=== PATIENT | male | born 1945 | race Two or more races ===

== ENCOUNTER → 2023-07-21 12:47 | Outpatient (REF) | payer OTHER, SELFPAY ==
[2023-07-21 15:46] LABS: INR 1.87; PT 21.3 Sec (11.4-14.6)
== END ==
LOC: HWLAB 12:47
PROVIDERS: ATTENDING PHYSICIAN Internal Medicine Cardiovascular Disease; FAMILY PHYSICIAN Family Medicine
DX: I48.21 Permanent atrial fibrillation (principal)
CPT/HCPCS: 36415; 85610

== ENCOUNTER → 2023-08-01 13:50 | Outpatient (REF) | payer OTHER, SELFPAY ==
[2023-08-01 15:12] LABS: INR 2.13; PT 23.7 Sec (11.4-14.6)
== END ==
LOC: HWLAB 13:50
PROVIDERS: ATTENDING PHYSICIAN Internal Medicine Cardiovascular Disease; FAMILY PHYSICIAN Family Medicine
DX: I48.21 Permanent atrial fibrillation (principal)
CPT/HCPCS: 36415; 85610

== ENCOUNTER → 2023-08-12 13:38 | Outpatient (REF) | payer OTHER, SELFPAY ==
[2023-08-12 16:16] LABS: INR 2.59; PT 27.6 Sec (11.4-14.6)
== END ==
LOC: HWLAB 13:38
PROVIDERS: ATTENDING PHYSICIAN Internal Medicine Cardiovascular Disease
DX: I48.21 Permanent atrial fibrillation (principal)
CPT/HCPCS: 36415; 85610

== ENCOUNTER → 2023-09-15 11:43 | Outpatient (REF) | payer OTHER, SELFPAY ==
[2023-09-15 16:13] LABS: INR 2.51
== END ==
LOC: HWLAB 11:43
PROVIDERS: ATTENDING PHYSICIAN Internal Medicine Cardiovascular Disease; FAMILY PHYSICIAN Family Medicine
DX: I48.21 Permanent atrial fibrillation (principal)
CPT/HCPCS: 36415; 85610

== ENCOUNTER → 2023-10-01 12:10 | Outpatient (REF) | payer OTHER, SELFPAY ==
[2023-10-01 16:13] LABS: INR 1.88; PT 21.8 Sec (11.4-14.6)
== END ==
LOC: HWLAB 12:10
PROVIDERS: ATTENDING PHYSICIAN Internal Medicine Cardiovascular Disease; FAMILY PHYSICIAN Family Medicine
DX: I48.21 Permanent atrial fibrillation (principal)
CPT/HCPCS: 36415; 85610

== ENCOUNTER → 2023-10-07 08:57 | Outpatient (REF) | payer OTHER, SELFPAY ==
[2023-10-07 11:32] LABS: INR 2.65; PT 28.1 Sec (11.4-14.6)
== END ==
LOC: HWLAB 08:57
PROVIDERS: ATTENDING PHYSICIAN Internal Medicine Cardiovascular Disease; FAMILY PHYSICIAN Family Medicine
DX: I48.21 Permanent atrial fibrillation (principal)
CPT/HCPCS: 36415; 85610

== ENCOUNTER → 2023-10-15 12:34 | Outpatient (REF) | payer OTHER, SELFPAY ==
[2023-10-15 14:56] LABS: INR 3.92; PT 39.1 Sec (11.4-14.6)
== END ==
LOC: HWLAB 12:34
PROVIDERS: ATTENDING PHYSICIAN Internal Medicine Cardiovascular Disease; FAMILY PHYSICIAN Family Medicine
DX: I48.21 Permanent atrial fibrillation (principal)
CPT/HCPCS: 36415; 85610

== ENCOUNTER → 2023-11-06 11:59 | Outpatient (REF) | payer OTHER, SELFPAY | LOC: HWLAB 11:59 | PROVIDERS: ATTENDING PHYSICIAN Internal Medicine Cardiovascular Disease; FAMILY PHYSICIAN Family Medicine | DX: I48.21 Permanent atrial fibrillation (principal) | CPT/HCPCS: 36415; 85610 ==

== ENCOUNTER → 2023-11-18 11:58 | Outpatient (REF) | payer OTHER, SELFPAY ==
[2023-11-18 15:40] LABS: INR 2.42; PT 26.2 Sec (11.4-14.6)
== END ==
LOC: HWLAB 11:58
PROVIDERS: ATTENDING PHYSICIAN Internal Medicine Cardiovascular Disease; FAMILY PHYSICIAN Family Medicine
DX: I48.21 Permanent atrial fibrillation (principal)
CPT/HCPCS: 36415; 85610

== ENCOUNTER → 2023-12-18 08:30 | Outpatient (REF) | payer OTHER, SELFPAY ==
[2023-12-18 10:14] LABS: % Basophils 0.9 % (0-2); % Eosinophils 2.3 % (0-6); % Immature Granulocytes 0.7 % (0-0.5); % Lymphocytes 17.9 % (20.5-51.1); % Neutrophils 70.2 % (42.2-75.2); Absolute Basophils 0.1 10^3/uL (0-0.2); Absolute Eosinophils 0.2 10^3/uL (0-0.7); Absolute Immature Granulocytes 0.1 10^3/uL (0-0.05); Absolute Lymphocytes 1.7 10^3/uL (1.2-3.4); Absolute Monocytes 0.7 10^3/uL (0.1-0.6); Absolute Neutrophils 6.5 10^3/uL (1.4-6.5); Hematocrit 37.8 % (39.0-52.0); Hemoglobin 12.7 g/dL (13.0-18.0); Mean Corp Hgb Conc. 33.6 g/dL (33.0-37.0); Mean Corpuscular Hgb 29.5 pg (27.0-31.0); Mean Corpuscular Volume 87.9 fL (80.0-94.0); Mean Platelet Volume 10.2 fL (7.4-10.4); Nucleated Red Blood Cells % 0 % (-); Platelet Count 214 10^3/uL (130-400); Red Cell Dist. Width 14.7 % (11.5-14.5); White Blood Cell Count 9.2 10^3/uL (4.8-10.8)
[2023-12-18 10:16] LABS: Urine Albumin Negative (Neg - Trace); Urine Bilirubin Negative (Negative); Urine Character Clear (Clear); Urine Color Straw; Urine Glucose Negative (Negative); Urine Ketone Negative (Negative); Urine Leukocyte Negative (Negative); Urine Nitrite Negative (Negative); Urine Occult Blood Negative (Negative); Urine Urobilinogen Negative (Neg - 1+)
[2023-12-18 10:36] LABS: INR 2.34; PT 25.9 Sec (11.4-14.6)
[2023-12-18 11:22] LABS: Glycohemoglobin (HgbA1c) 6.8 % (4.0-5.6)
[2023-12-18 12:13] LABS: ALT (SGPT) 14 U/L (0-50); AST (SGOT) 18 U/L (17-59); Albumin 4.5 g/dl (3.5-5.0); Alkaline Phosphatase 89 U/L (38-126); Blood Urea Nitrogen 42 mg/dl (9-20); Calcium 9.5 mg/dl (8.4-10.2); Carbon Dioxide 28 mmol/L (22-30); Chloride 103 mmol/L (98-107); Glucose 148 mg/dl (70-99); HDL Cholesterol 60 mg/dl; LDL Cholesterol, Calculated 76 mg/dl; Sodium 138 mmol/L (135-145); Total Bilirubin 0.4 mg/dl (0.2-1.3); Total Cholesterol 162 mg/dl (50-199); Total Protein 6.9 g/dl (6.3-8.2); Triglyceride 133 mg/dl (10-149); Very Low Density Lipoprotein 26 mg/dl (0-30); eGFR 33.53
[2023-12-18 15:16] LABS: Microalbumin, Random Urine < 0.6 mg/dl (0.6-1.7)
[2023-12-18 22:35] LABS: Microalb - Urine Creatinine < 3.000 mg/dl
== END ==
LOC: HWLAB 08:30
PROVIDERS: ATTENDING PHYSICIAN Internal Medicine Cardiovascular Disease; FAMILY PHYSICIAN Family Medicine
DX: I48.21 Permanent atrial fibrillation (principal); I25.10 Atherosclerotic heart disease of native coronary artery without angina pectoris; E11.8 Type 2 diabetes mellitus with unspecified complications
CPT/HCPCS: 36415; 80053; 80061; 81003; 82043; 82570; 83036; 85025; 85610

== ENCOUNTER → 2023-12-29 07:06 | Outpatient (REF) | payer OTHER, SELFPAY ==
[2023-12-29 10:34] LABS: Blood Urea Nitrogen 37 mg/dl (9-20); Calcium 8.9 mg/dl (8.4-10.2); Carbon Dioxide 30 mmol/L (22-30); Chloride 103 mmol/L (98-107); Glucose 136 mg/dl (70-99); Potassium 4.3 mmol/L (3.5-5.1); Sodium 138 mmol/L (135-145); eGFR 38.05
[2023-12-29 10:41] LABS: INR 2.27; PT 24.9 Sec (11.4-14.6)
== END ==
LOC: HWLAB 07:06
PROVIDERS: ATTENDING PHYSICIAN Internal Medicine Cardiovascular Disease; FAMILY PHYSICIAN Family Medicine
DX: I48.21 Permanent atrial fibrillation (principal); R79.89 Other specified abnormal findings of blood chemistry
CPT/HCPCS: 36415; 80048; 85610

== ENCOUNTER → 2024-01-12 13:22 | Outpatient (REF) | payer OTHER, SELFPAY ==
[2024-01-12 15:55] LABS: Blood Urea Nitrogen 32 mg/dl (9-20); Calcium 9.3 mg/dl (8.4-10.2); Carbon Dioxide 28 mmol/L (22-30); Chloride 102 mmol/L (98-107); Glucose 132 mg/dl (70-99); Potassium 4.7 mmol/L (3.5-5.1); Sodium 137 mmol/L (135-145); eGFR 40.75
[2024-01-12 16:14] LABS: INR 1.88; PT 21.4 Sec (11.4-14.6)
== END ==
LOC: HWLAB 13:22
PROVIDERS: ATTENDING PHYSICIAN Internal Medicine Cardiovascular Disease; FAMILY PHYSICIAN Family Medicine
DX: R79.89 Other specified abnormal findings of blood chemistry (principal); I48.21 Permanent atrial fibrillation
CPT/HCPCS: 36415; 80048; 85610

== ENCOUNTER → 2024-02-19 08:56 | Outpatient (REF) | payer OTHER, SELFPAY ==
[2024-02-19 12:46] LABS: INR 2.77; PT 29.7 Sec (11.4-14.6)
== END ==
LOC: HWLAB 08:56
PROVIDERS: ATTENDING PHYSICIAN Internal Medicine Cardiovascular Disease; FAMILY PHYSICIAN Family Medicine
DX: I48.21 Permanent atrial fibrillation (principal)
CPT/HCPCS: 36415; 85610

== ENCOUNTER → 2024-03-05 08:51 | Outpatient (REF) | payer OTHER, SELFPAY ==
[2024-03-05 13:00] LABS: INR 2.78; PT 29.2 Sec (11.4-14.6)
== END ==
LOC: HWLAB 08:51
PROVIDERS: ATTENDING PHYSICIAN Internal Medicine Cardiovascular Disease; FAMILY PHYSICIAN Family Medicine
DX: I48.21 Permanent atrial fibrillation (principal)
CPT/HCPCS: 36415; 85610

== ENCOUNTER → 2024-03-16 08:57 | Outpatient (REF) | payer OTHER, SELFPAY ==
[2024-03-16 11:20] LABS: INR 2.45; PT 26.5 Sec (11.4-14.6)
== END ==
LOC: HWLAB 08:57
PROVIDERS: ATTENDING PHYSICIAN Internal Medicine Cardiovascular Disease; FAMILY PHYSICIAN Family Medicine
DX: I48.21 Permanent atrial fibrillation (principal)
CPT/HCPCS: 36415; 85610

== ENCOUNTER → 2024-03-25 10:16 | Outpatient (REF) | payer OTHER, SELFPAY ==
[2024-03-25 12:41] LABS: INR 2.25; PT 25.1 Sec (11.4-14.6)
[2024-03-25 12:42] LABS: Blood Urea Nitrogen 25 mg/dl (9-20); Calcium 9.4 mg/dl (8.4-10.2); Carbon Dioxide 25 mmol/L (22-30); Chloride 104 mmol/L (98-107); Glucose 173 mg/dl (70-99); Phosphorus 2.6 mg/dl (2.5-4.5); Potassium 5.1 mmol/L (3.5-5.1); Sodium 144 mmol/L (135-145); eGFR 56.23
[2024-03-25 13:14] LABS: Protein/creatinine Ratio 0.4; Urine Protein 34 mg/dl
[2024-03-25 13:34] LABS: Uric Acid 4.5 mg/dl (3.5-8.5)
[2024-03-27 10:40] LABS: Intact PTH 61.1 pg/ml (13.6-85.8)
== END ==
LOC: HWRAD 10:16
PROVIDERS: ATTENDING PHYSICIAN Specialist; FAMILY PHYSICIAN Family Medicine; REFERRING PHYSICIAN Internal Medicine Cardiovascular Disease
DX: I48.21 Permanent atrial fibrillation (principal); N17.9 Acute kidney failure, unspecified; E11.8 Type 2 diabetes mellitus with unspecified complications; I10 Essential (primary) hypertension; R07.81 Pleurodynia
CPT/HCPCS: 36415; 71046; 80048; 82570; 82784; 83521; 83970; 84100; 84155; 84156; 84165; 84550; 85610; 86334

== ENCOUNTER → 2024-04-08 10:02 | Outpatient (REF) | payer OTHER, SELFPAY ==
[2024-04-08 12:00] LABS: INR 2.03; PT 23.4 Sec (11.4-14.6)
== END ==
LOC: HWRAD 10:02
PROVIDERS: ATTENDING PHYSICIAN Specialist; REFERRING PHYSICIAN Internal Medicine Cardiovascular Disease
DX: N17.9 Acute kidney failure, unspecified (principal); I48.21 Permanent atrial fibrillation
CPT/HCPCS: 36415; 76770; 85610

== ENCOUNTER → 2024-05-14 12:05 | Outpatient (REF) | payer OTHER, SELFPAY ==
[2024-05-14 16:47] LABS: INR 1.64; PT 19.6 Sec (11.4-14.6)
== END ==
LOC: HWLAB 12:05
PROVIDERS: ATTENDING PHYSICIAN Internal Medicine Cardiovascular Disease
DX: I48.21 Permanent atrial fibrillation (principal)
CPT/HCPCS: 36415; 85610

== ENCOUNTER → 2024-06-01 09:45 | Outpatient (REF) | payer MEDICARE, SELFPAY ==
[2024-06-01 12:42] LABS: PT 27.8 Sec (11.4-14.6)
== END ==
LOC: HWLAB 09:45
PROVIDERS: ATTENDING PHYSICIAN Internal Medicine Cardiovascular Disease
DX: I48.21 Permanent atrial fibrillation (principal)
CPT/HCPCS: 36415; 85610

== ENCOUNTER → 2024-06-28 11:00 | Outpatient (REF) | payer MEDICARE, SELFPAY ==
[2024-06-28 16:00] LABS: INR 2.98; PT 30.9 Sec (11.4-14.6)
[2024-06-28 16:40] LABS: Albumin 4.8 g/dl (3.5-5.0); Blood Urea Nitrogen 41 mg/dl (9-20); Calcium 8.7 mg/dl (8.4-10.2); Carbon Dioxide 18 mmol/L (22-30); Chloride 108 mmol/L (98-107); Glucose 91 mg/dl (70-99); Phosphorus 3.2 mg/dl (2.5-4.5); Potassium 5.6 mmol/L (3.5-5.1); Sodium 142 mmol/L (135-145); eGFR 35.66
[2024-06-28 16:46] LABS: % Basophils 0.9 % (0-2); % Eosinophils 1.7 % (0-6); % Immature Granulocytes 0.7 % (0-0.5); % Lymphocytes 16.2 % (20.5-51.1); % Monocytes 8.6 % (1.7-9.3); % Neutrophils 71.9 % (42.2-75.2); Absolute Basophils 0.1 10^3/uL (0-0.2); Absolute Eosinophils 0.2 10^3/uL (0-0.7); Absolute Immature Granulocytes 0.1 10^3/uL (0-0.05); Absolute Lymphocytes 1.4 10^3/uL (1.2-3.4); Absolute Monocytes 0.8 10^3/uL (0.1-0.6); Absolute Neutrophils 6.4 10^3/uL (1.4-6.5); Hematocrit 19.8 % (39.0-52.0); Hemoglobin 5.6 g/dL (13.0-18.0); Mean Corp Hgb Conc. 28.3 g/dL (33.0-37.0); Mean Corpuscular Hgb 21.1 pg (27.0-31.0); Mean Corpuscular Volume 74.4 fL (80.0-94.0); Mean Platelet Volume 9.3 fL (7.4-10.4); Nucleated Red Blood Cells % 0 % (-); Platelet Count 299 10^3/uL (130-400); Red Blood Cell Count 2.66 10^6/uL (4.70-6.10); Red Cell Dist. Width 18.4 % (11.5-14.5); White Blood Cell Count 8.9 10^3/uL (4.8-10.8)
[2024-06-28 17:02] LABS: Normal RBC Morphology No
[2024-06-28 17:03] LABS: Anisocytosis 1+; Hypochromasia 1+; Microcytosis 1+; TSH Reflex To Free T4 3.07 uIU/ml (0.47-4.68)
[2024-06-28 17:04] LABS: Ovalocytes 1+; Stomatocytes Slight
== END ==
LOC: HWLAB 11:00
PROVIDERS: ATTENDING PHYSICIAN Internal Medicine Cardiovascular Disease; FAMILY PHYSICIAN Nurse Practitioner Family
DX: I48.21 Permanent atrial fibrillation (principal); I25.10 Atherosclerotic heart disease of native coronary artery without angina pectoris; R06.02 Shortness of breath; N18.9 Chronic kidney disease, unspecified
CPT/HCPCS: 36415; 80069; 84443; 85025; 85610

== ENCOUNTER 2024-06-28 22:44 | Inpatient (IN) | payer MEDICARE, SELFPAY ==
[2024-06-28] VITALS (9 sets, daily range): BP systolic 101–132; BP diastolic 47–77; BMI 29.3
[2024-06-28 18:54] LABS: % Eosinophils 1.1 % (0-6); % Immature Granulocytes 0.5 % (0-0.5); % Lymphocytes 16.1 % (20.5-51.1); % Monocytes 7.9 % (1.7-9.3); % Neutrophils 73.4 % (42.2-75.2); Absolute Basophils 0.1 10^3/uL (0-0.2); Absolute Eosinophils 0.1 10^3/uL (0-0.7); Absolute Lymphocytes 1.3 10^3/uL (1.2-3.4); Absolute Monocytes 0.6 10^3/uL (0.1-0.6); Absolute Neutrophils 5.9 10^3/uL (1.4-6.5); Hematocrit 19.3 % (39.0-52.0); Hemoglobin 5.5 g/dL (13.0-18.0); Mean Corp Hgb Conc. 28.5 g/dL (33.0-37.0); Mean Corpuscular Hgb 21.1 pg (27.0-31.0); Mean Corpuscular Volume 73.9 fL (80.0-94.0); Mean Platelet Volume 9.1 fL (7.4-10.4); Nucleated Red Blood Cells % 0 % (-); Platelet Count 278 10^3/uL (130-400); Red Blood Cell Count 2.61 10^6/uL (4.70-6.10); Red Cell Dist. Width 18.2 % (11.5-14.5); White Blood Cell Count 8.1 10^3/uL (4.8-10.8)
[2024-06-28 19:16] LABS: ALT (SGPT) 22 U/L (0-50); AST (SGOT) 21 U/L (17-59); Albumin 4.6 g/dl (3.5-5.0); Alkaline Phosphatase 81 U/L (38-126); Blood Urea Nitrogen 41 mg/dl (9-20); Calcium 8.9 mg/dl (8.4-10.2); Carbon Dioxide 15 mmol/L (22-30); Chloride 107 mmol/L (98-107); Glucose 104 mg/dl (70-99); Potassium 5.5 mmol/L (3.5-5.1); Sodium 140 mmol/L (135-145); Total Bilirubin 0.5 mg/dl (0.2-1.3); Total Protein 6.6 g/dl (6.3-8.2); eGFR 35.66
--- NOTE | 2024-06-28 19:48 | ED.GENMED ---
History of Present Illness
General
Chief Complaint: Abnormal Lab Value
Source: patient and family
Exam Limitations: none
Time Seen by Provider: 06/28/24 19:28
Nursing documentation reviewed up to this point in time: agreed with
History of Present Illness
History of Present Illness:
The patient is a pleasant 78-year-old man with a past medical history of atrial fibrillation, on Coumadin, high blood pressure, hyperlipidemia, and coronary artery disease who was sent into the ED after outpatient blood work today showed a low
hemoglobin. Patient reports that Dr. Welch ordered the blood work. Patient reports he has been tired for a long time. He denies chest pain or shortness of breath. He denies dizziness. Patient was reportedly sent in due to anemia. Patient
reports that he does not have a specific history of anemia as far as he knows. He denies black and bloody stools. He denies abdominal pain. Patient denies all pain at this time and just feels tired. Patient takes Coumadin for atrial fibrillation.
Past History
Past History
ED Past Medical History: Arrthythmia (afib), CAD, COPD, GERD, HTN, Hypercholesterolemia and Other (Peptic ulcer disease, IBS, arthritis, cardiomyopathy, hemorrhagic CVA)
ED Past Surgical History: Cholecystectomy and Other (herniorrhaphy, craniotomy)
Social History
Tobacco: Smoker
Alcohol: Occasional
Drug: None
Personal:
Living: with family
Employment: Retired
Family History
Family History: Other
Review of Systems
Review of Systems
Allergies reviewed?: Yes
All Other Systems: ROS reviewed and negative except as documented in HPI and ROS
Constitutional: Reports fatigue
EENT: Reports no symptoms
Respiratory: Reports no symptoms
Cardiac: Reports no symptoms
ABD/GI: Reports no symptoms
: Reports no symptoms
Musculoskeletal: Reports no symptoms
Skin: Reports no symptoms
Neurological: Reports no symptoms
Hematologic/Lymphatic: Reports no symptoms
Psychiatric: Reports no symptoms
Phy Exam
Physical Exam
Physical Exam:
Physical Exam
General: No acute distress. Patient appears pale. Fully conversational and awake
Neck: supple. no meningeal signs. normal psoterior pharynx
Heart: Regular rate, irregular rhythm
Lungs: no acute respiratory distress. clear bilaterally
Abdomen: normal bowel sounds. not tender. no CVAT, stool is brown but Hemoccult positive
Neuro: alert and oriented. no focal neurological deficits
Skin: no rash
Psychiatric: well kept. interactive and cooperative
Extremities: no edema. no calf tenderness. negative homans. good distal pulses
Course
Orders/Labs/Results
Orders:
Orders
06/28/24 18:27
Electrocardiogram (*1) Urgent
Reason for Study: Shortness of Breath
EKG- Treatment ONCE
06/28/24 18:37
Type+Screen Urgent
Complete Blood Count/With Diff Urgent
Comprehensive Metabolic Panel Urgent
06/28/24 20:07
Blood Bank Products [* Blood Bank Products] Urgent
'abhinav Orders: Julio
Blood Bank Products: *Packed RBC Leuko(PRBC's)
Quantity: 3
Transfuse Today: Yes
Reason: Anemia
Patient will require pre-treatment for transfusion:: No
06/28/24 20:10
0.9% Sodium Chloride 250 ml [Nss] 250 ml IV BOLUS
06/28/24 20:14
ABO2 Urgent
BBK Wristband Number:
Associate notified that ABO2 has been ordered: [id number]
Date: 06/28/24
Time: 18:55
Motor Carrier Inspector ID: [id number]
Abnormal Lab Results
06/28/24
18:37
RBC 2.61 L 10^6/uL
(4.70-6.10)
Hgb 5.5 L* g/dL
(13.0-18.0)
Hct 19.3 L* %
(39.0-52.0)
MCV 73.9 L fL
(80.0-94.0)
MCH 21.1 L pg
(27.0-31.0)
MCHC 28.5 L g/dL
(33.0-37.0)
RDW 18.2 H %
(11.5-14.5)
Lymphocytes % 16.1 L %
(20.5-51.1)
Potassium 5.5 H mmol/L
(3.5-5.1)
Carbon Dioxide 15 L mmol/L
(22-30)
BUN 41 H mg/dl
(9-20)
Creatinine 1.9 H mg/dL
(0.7-1.3)
Glucose 104 H mg/dl
(70-99)
Crossmatch IS Only See Detail
06/28/24 18:37
06/28/24 18:37
Vital Signs
Initial and Last Documented VS:
Initial Vital Signs
Temp Pulse Resp BP Pulse Ox
97.3 F 85 18 128/47 100
06/28/24 18:22 06/28/24 18:22 06/28/24 18:22 06/28/24 18:22 06/28/24 18:22
Last Documented Vital Signs
Temp Pulse Resp BP Pulse Ox
97.3 F 76 13 113/56 100
06/28/24 18:22 06/28/24 21:01 06/28/24 21:01 06/28/24 21:01 06/28/24 21:01
MDM/Problems Addressed
Differential Diagnosis Includes:
Symptomatic anemia due to myelodysplastic syndrome, symptomatic anemia due to GI bleed
MDM/Problems Addressed:
Patient presents with chronic fatigue and newly diagnosed anemia
Chronic conditions affecting care: Arrhythmia
Acute Exacerbation and/or Progression of Chronic Illness:
Patient is an active atrial fibrillation, however, he is rate controlled and has a normal blood pressure
Acute Exacerbation and/or Progression of Chronic Illness: Arrhythmia
*Pulse Oximetry
Patient hypoxic: no
*EKG
Interpreted by ED Provider?: Yes
Interpretation: abnormal
Comparison EKG: changes noted (Nonspecific T wave changes)
Rate: normal
Rhythm: a-fib
[place]: normal axis
Interval: normal interval
QRS Pattern: low voltage
Ischemia: non-specific ST changes
*Pharmaceutical Plant Operator Interpretation
Rate: normal
Interpretation: abnormal
Rhythm: a-fib
*Critical Care Note
Total Time (30-74mins, 75-104mins- exclusive of procedures): 40 minutes
comment:
40 minutes of critical care given to patient including frequent reassessments of his mental status, blood pressure, heart rate, discussing the blood transfusion and reviewing patient's past lab values
Data Reviewed
Review of Other/Old Records Reveals: Operative Reports (Normal colonoscopy done by Dr. Malcolm during 2019)
Source: patient, spouse and family
Patient Management
Social determinants of health affecting care: Living situation and Strong social support
Discussion with other providers: Hospitalist
Escalation/DeEscalation of care consider admission/obs:
Patient's gave written consent for blood transfusion due to request of patient. Patient verbally consents to blood transfusion and understands of risks and benefits.
I suspect patient has had a chronic slow GI bleed causing him to have symptomatic anemia. There is no active GI bleeding.
ED Attending Note
-
Portions of this chart may have been created with voice recognition software.� Occasional wrong word or��sound alike� substitutions may have occurred due to the inherent limitations of voice recognition software.
Discharge Plan
Departure
Patient Disposition: Admit
Date of Disposition: 06/28/24
Time of Disposition: 20:09
Admit to: Med/Surg
Presentation/result/management discussed w/ accepting MD/DO: Hospitalist
Patient with high blood pressure during this ER visit?: No
Condition: Fair
Covid-19: Not Applicable
Discharge Problem:
Signs and symptoms of anemia, GI (gastrointestinal bleed)
Prescriptions:
No Action
nitroglycerin [Nitrostat] 0.4 MG tablet, sublingual
0.4 mg sublingual [id number] PRN (Reason: chest pain)
omeprazole 40 MG capsule,delayed release(DR/EC)
40 mg PO DAILY
aspirin 81 MG tablet,delayed release (DR/EC)
81 mg PO DAILY
metformin 1,000 MG tablet
1,000 mg PO BID@0800,1700
atorvastatin 40 MG tablet
40 mg PO QPM Qty: 30 0RF
fluticasone propionate [Flovent HFA] 1 PUFF HFA aerosol inhaler
1 puff inhalation R BID
levetiracetam 500 MG tablet
500 mg PO BID
isosorbide mononitrate 30 MG tablet extended release 24 hr
30 mg PO DAILY
warfarin [Jantoven] 3 MG tablet
6 mg PO .1800
valsartan 320 MG tablet
320 mg PO DAILY
hydrochlorothiazide 25 MG tablet
25 mg PO DAILY
Referrals:
NONE,* [Family Provider] -
Interventions
Interventions:
*Risk Screen - Suicide Last Done: 06/28/24 18:22
*General Assessment Last Done: 06/28/24 18:22
*ED COVID-19 Vaccine History Last Done: 06/28/24 18:22
Discharge Date and Time
Print Language: GREENLANDIC
[2024-06-28] MEDS: NSS 250 IV (21:16)
--- NOTE | 2024-06-28 21:47 | HPS.HSE ---
Family Physician
-
Family Physician: * NONE
Chief Complaint
-
Fatigue, symptomatic anemia
History of Present Illness
This is a 78-year-old with past medical history significant for atrial fibrillation on anticoagulation with Coumadin, COPD not on home O2, CAD, hypertension, history of GERD and utr-qlgwaur-uqnoixzhj diabetes who presents to the emergency department
from clinic with anemia.
Patient reports approximately 2 weeks of fatigue, dyspnea on exertion and some weakness. He reports occasional dizziness. Denies any syncopal episode. He denies any chest pain, cough fevers or chills. He denies lower extremity edema or
orthopnea. He denies any worsening abdominal pain or reflux symptoms. He denies hematochezia or melena. He was seen in follow-up clinic for his symptoms and was found to be anemic with a hemoglobin of 5.5. Sent to the emergency department.
In the ED the patient was afebrile, blood pressure was 110/50 with a pulse of 76 afebrile. Oxygen saturation was 100%. Hemoglobin 5.5 CBC was otherwise unremarkable. MCV was 78. Electrolytes notable for a potassium of 5.5. Creatinine 1.9. INR
3. Glucose was normal. ECG with A-fib rate 84.
Medical History
Past Medical History
Past Medical History: Reports Arrhythmia (Atrial fibrillation on Coumadin), COPD, GERD, Hypercholesterolemia, NIDDM and Renal Failure (CKD stage III)
Past Surgical History: Reports Other
Social History
Tobacco: Smoker
Alcohol: Occasional
Drug: None
Personal:
Living: With Family
Employment: Retired
Family History
Family History: Not pertinent
Allergies / Home Medications
Allergies reflects when Allergies were last updated in [employer].
Home Medications with original date entered in [employer]
Allergy/Medication List:
Allergies
Allergy/AdvReac Type Severity Reaction Status Date / Time
amoxicillin Allergy Unknown Verified 06/28/24 18:26
Beta-Blockers Allergy Unknown Verified 06/28/24 18:26
(Beta-Adrenergic Bloc
Cephalosporins Allergy Unknown Verified 06/28/24 18:26
clavulanic acid Allergy Unknown Verified 06/28/24 18:26
digoxin Allergy Unknown Verified 06/28/24 18:26
lisinopril Allergy Unknown Verified 06/28/24 18:26
metoprolol Allergy Unknown Verified 06/28/24 18:26
Penicillins Allergy Unknown Verified 06/28/24 18:26
Home Medications
nitroglycerin 0.4 mg sublingual tablet (Nitrostat) 0.4 mg sublingual [id number] PRN chest pain 10/09/12
omeprazole 40 mg capsule,delayed release 40 mg PO DAILY 05/12/16
aspirin 81 mg tablet,delayed release 81 mg PO DAILY 11/16/16
metformin 1,000 mg tablet 1,000 mg PO BID@0800,1700 01/15/17
atorvastatin 40 mg tablet 40 mg PO QPM #30 tabs 01/22/17
fluticasone propionate 110 mcg/actuation HFA aerosol inhaler (Flovent HFA) 1 puff inhalation R BID 05/27/18
hydrochlorothiazide 25 mg tablet 25 mg PO DAILY 05/15/19
isosorbide mononitrate 30 mg tablet,extended release 24 hr 30 mg PO DAILY 05/15/19
levetiracetam 500 mg tablet 500 mg PO BID 05/15/19
valsartan 320 mg tablet 320 mg PO DAILY 05/15/19
warfarin 3 mg tablet (Jantoven) 6 mg PO .1800 05/15/19
Review of Systems
-
Constitutional: Reports No Symptoms
EENT: Reports No Symptoms
Respiratory: Reports No Symptoms
Cardiac: Reports No Symptoms
Abdomen/GI: Reports No Symptoms
: Reports No Symptoms
Musculoskeletal: Reports No Symptoms
Skin: Reports No Symptoms
Neurological: Reports No Symptoms and Weakness
Hematologic/Lymphatic: Reports No Symptoms
Psych: Reports No Symptoms
Physical Exam
Vital Signs
Vital Signs
Temp Pulse Resp BP Pulse Ox
98.4 F 82 20 101/77 100
06/28/24 21:45 06/28/24 21:45 06/28/24 21:45 06/28/24 21:45 06/28/24 21:45
Physical Exam
General: Well Developed, Well Nourished, No Apparent Distress and Comfortable
HEENT: NormoCephalic, Anicteric, Moist mucous membranes and Atraumatic
Respiratory: Clear
Cardiac: S1/S2 and Irregular Rhythm
Breast: Deferred by me
GI: Soft, Non Tender, Non Distended and Normal Bowel Sounds
Rectal: Brown and Hem Positive
Genito-urinary: Deferred by me
Musculoskeletal: No Clubbing, No Cyanosis, Edema, Left Lower Extremity (trace) and Edema, Right Lower Extremity (trace)
Skin: Warm
Neuro: AO x 3
Hematologic/Lymphatic: No Lymphadenopathy
Psych: Calm
Laboratory Results
-
06/28/24 18:37
06/28/24 18:37
Laboratory Results
Total Bilirubin 0.5 mg/dl (0.2-1.3) 06/28/24 18:37
AST 21 U/L (17-59) 06/28/24 18:37
ALT 22 U/L (0-50) 06/28/24 18:37
Alkaline Phosphatase 81 U/L (38-126) 06/28/24 18:37
Data Reviewed
-
Medical Tests (Nuc Med, Echo, EKG etc): Image Personally Visualized and interpreted
Lab Data: Labs Reviewed by me
Old Records: Reviewed
Impression/Plan
-
IMPRESSION:
78 y.o male with symptomatic anemia, INR 2.98 on coumadin for afib. Heme + bronw stools. Hgb 5.5. MCV 78. HD stable.
PLAN:
1. Symptomatic anemia - Likely GI bleed related in setting of therapeutic INR on coumadin and h/o GERD and dyspeptic symptoms. Subacute to chronic with iron def likely. No ricarda bleed suspected at the moment.
- admit to telemetry
- hold coumadin for now
- type and screen, transfuse to goal Hgb > 7
- check iron panel
- ppi iv bid
- h&h q 12
- ppi iv bid for now
- GI consultation
2. UDAY - mild uday vs CKD
- orthostatics
- transfusion as above for volume
- hold hctz/valsartan till non-orthostatic
3. DM II
- clear liquid diet
- hold metformin
- sliding scale insulin
4. CAD
- holding aspirin for now
DVT PPX - SCDs
Code status - full code
[2024-06-29] VITALS (23 sets, daily range): BP systolic 118–159; BP diastolic 59–84; PULSE 76–84; BMI 28.1
--- NOTE | 2024-06-29 01:08 | PTCARENOTE ---
Patient received from ED in stretcher. Ambulated to bed, standby assist. Patient appeared dyspneic on exertion. Oxygen saturation 99-100% on room air. Atrial fibrillation on monitoring tech. Right arm PIV intact. Plan of care discussed with
patient including ordered blood transfusions. Admission completed. Patient offers no complaints at this time. Call pearce with reach. Bed in lowest position, wheels locked. Assessment ongoing.
[2024-06-29] MEDS: ProAIR HFA INHALER 2 PUFF INH ×2 (04:02→20:30)
[2024-06-29 04:52] LABS: INR 2.92; PT 30.4 Sec (11.4-14.6)
[2024-06-29 05:07] LABS: Blood Urea Nitrogen 43 mg/dl (9-20); Calcium 8.6 mg/dl (8.4-10.2); Carbon Dioxide 21 mmol/L (22-30); Chloride 108 mmol/L (98-107); Estimated Creatinine Clearance 32 ml/min; Glucose 96 mg/dl (70-99); Iron 67 ug/dl (49-181); Potassium 5.3 mmol/L (3.5-5.1); Sodium 138 mmol/L (135-145); eGFR 40.75
[2024-06-29 05:17] LABS: Percent Saturation 16 % (20-50); Total Iron Binding Capacity 401 ug/dl (261-462)
[2024-06-29 05:43] LABS: Ferritin 6.8 ng/ml (17.9-464.0)
[2024-06-29 05:57] LABS: Hepatitis C Antibody Negative (Negative)
[2024-06-29 06:14] LABS: Folate > 20.0 ng/ml (2.76-20)
[2024-06-29] MEDS: FLOVENT 110 MCG INHALER 1 PUFF INH ×2 (07:27→20:29)
[2024-06-29 07:49] LABS: Glucose - Point of Care 112 mg/dl (70-99)
--- NOTE | 2024-06-29 09:17 | PTCARENOTE ---
Addendum entered by Di White RN 06/29/24 15:42:
Pt given a clear liquid diet for lunch. Pt agreeable to taking AM meds. See MAR.
Original Note:
Rec'd pt at handoff. Pt is AOX3. tele- afib. HR 80-90s. Pt states he has no complaints of pain/discomfort at this time. Plan of care verbalized to pt. Verbalizes understanding. Verbalized to pt that he is ordered a clear liquid diet to begin at
dinner and is NPO for the current time. Pt refusing AM meds. Pt reports he needs food to take with medications. Explained importance of medications. Pt continues to refuse and states 'he just wants to nap.' Call portia w/in reach.
--- NOTE | 2024-06-29 11:24 | W.PN.HOSP.TC ---
Today's Communication/Plan
-
Monitor hemoglobin
Oral vitamin K
Lokelma
Await GI input
Assessment / Plan
Assessment / Plan
Gen-AAOx3, NAD
HEENT-NC, AT, anicteric, clear oral mm
Neck-supple
CV-reg, no M, +S1/S2
Lungs-clear B/L
Abd-soft, NT, ND
Ext-no edema
Musculoskeletal-no cyanosis, clubbing
Skin-warm and dry
Neuro-grossly non-focal
Psych-calm, cooperative
Symptomatic acute blood loss anemia - clinically improving, transfused 3u PRBC so far. Heme positive stools in the ER. Patient denies hematochezia or melena. Baseline hemoglobin 12 last year, 5.6 on admission.
Repeat CBC pending.
Iron deficiency noted on labs.
GI bleed - likely subacute or chronic. GI consulted. Unclear etiology. Previous c-scope and EGD in 2019 without bleeding source.
Hold Warfarin.
UDAY on CKD 3a - suspect UDAY due to significant anemia. Creatinine coming down. Monitor for now. Hold valsartan.
Permanent AFib - hold warfarin as above. INR 2.9 this morning. Give a low dose of vitamin K orally in preparation for endoscopic procedure by GI.
Hyperkalemia -give a dose of Lokelma.
Essential HTN -stable.
Hyperlipidemia -atorvastatin.
COPD without exac
CAD - stable. Resume aspirin.
DM2 without hyperglycemia -hold metformin. Use low resistance NovoLog scale. Glucose 112 this morning.
Full code
Anticipated Discharge: > 48 hours
Subjective/Interval History
-
Date of Service: June 29, 2024
Patient seen/examined. No complaints.
Objective Data
-
Labs:
Laboratory Results
06/29/24 06/29/24 06/29/24
04:00 14:15 22:15
Hgb Pending Pending
Hct Pending Pending
PT 30.4 H
INR 2.92
Sodium 138
Potassium 5.3 H
Chloride 108 H
Carbon Dioxide 21 L
BUN 43 H
Creatinine 1.7 H
Glucose 96
Calcium 8.6
Vital Signs:
Vital Signs
Temp Pulse Resp BP Pulse Ox
98.3 F 75 16 137/84 97
06/29/24 07:00 06/29/24 10:00 06/29/24 07:30 06/29/24 07:30 06/29/24 07:30
I&O
06/28/24 06/29/24 06/30/24
06:59 06:59 06:59
Intake Total 750 / 750
Output Total 400 / 400
Balance 350 / 350
Review of Systems
-
History Source: Patient
All other systems: Reviewed and negative
--- NOTE | 2024-06-29 11:35 | CON.GI ---
Addendum entered and electronically signed by Jossy Juarez DO 06/29/24 14:04:
The patient was seen and examined by me independently in collaboration with the nurse practitioner.
Past medical history/social history/medications/allergies/family history reviewed.
Lab data and imaging data reviewed.
Koko Baxter is a 78 y.o. male with pmhx cerebral hemorrhage, afib on coumadin (last dose 06/28), CAD, COPD, HTN, Dm2, valvular disease, hx of cholecystectomy, history of polyps. history of anemia with negative bidrectional endoscopy (2019, Dr. Malcolm)
admitted with symptomatic anemia, found to have a hemoglobin of 5.5, MCV 73.9; BUN 43/Cr. 1.7; INR 2.9. He believes he had some black stool last week, but could have also been dark brown, he is unsure. Rectal exam with brown, heme positive stool.
Prior endoscopic workup detailed below, EGD/Colonoscopy unremarkable for source of GI blood loss, however, no small bowel evaluation was completed at at that time. Additional lab abnormalities include elevated potassium of 5.3 (prior to blood
transfusions). Iron panel c/w acute iron deficiency anemia.
A/P:
s/p 3 units of PRBC transfused, post-transfusion Hgb pending
maintain 2 large-bore peripheral gauge IVs
active T&C
INR 2.9 with last dose of coumadin yesterday (06/28), s/p dose of Vit. K --> tentative plans for EGD tomorrow pending AM INR as well as potassium (given dose of Lokelma)
IV Iron
Addendum entered and electronically signed by OFELIA Galan 06/29/24 13:07:
cont to hold coumadin
Original Note:
Consultation
-
Date/Time Consultation Requested: 06/29/24 0030
Date/Time Consultation Performed: 06/29/24 1130
Requesting Provider: Blanche Haney MD
Performing Provider: OFELIA Lima, Paramjit Camejo MD
Reason for Consultation: anemia
Medical History
Chief Complaint / HPI
Chief Complaint: anemia
History of Present Illness:
Pt is a 78yo with hx cerebral hemorrhage with surgery , afib on Coumadin, CAD, COPD, HTN, IDDM, valvular disease, gout adrenal neoplasm, prior francine, GERD colon polyps, prior anemia in 2019 with neg work up presents to ER with onset of fatigue,
dyspnea, and exertion with weakness. On admission noted with hbg 5.5 with MCV 73.9 and iron deficiency with prior hbg 12.7 in November. Pt with prior CANDELARIO in past with work up in 2019. At that time EGD with chronic gastritis and colonoscopy normal. He
did have colonoscopy 2016 with TA polyp.
In review with patient he denies any dysphagia, odynophagia, GERD, nausea, vomiting, abdominal pain, diarrhea, constipation or rectal bleeding. ER rectal with brown heme + stool. On ASA but denies other NSAID use.
Past Medical History
Past Medical History: Arrhythmias (afib), COPD, GERD, HTN, NIDDM, Valvular Disease (MR) and Other (cerebral hemorrhage, pulm nodule, IBS, diverticulosis , lactose intolerance, rhinitis, sinnusitis, adrenal neoplasm, gout )
Past Surgical History: Cholecystectomy and Other (sinus surgery, umbilical hernia repair, hydrocele, brain surgery with hemorrhage )
Social History
Tobacco: Smoker
Alcohol: Occasional (rare)
Drug: None
Personal:
Living: With Family
Employment: Retired
Family History
Family History: Other (no family hx colon CA or polyps)
Allergies / Home Medications
Allergy/AdvReac Type Severity Reaction Status Date / Time
amoxicillin Allergy Unknown Verified 06/28/24 18:26
Beta-Blockers Allergy Unknown Verified 06/28/24 18:26
(Beta-Adrenergic Bloc
Cephalosporins Allergy Unknown Verified 06/28/24 18:26
clavulanic acid Allergy Unknown Verified 06/28/24 18:26
digoxin Allergy Unknown Verified 06/28/24 18:26
lisinopril Allergy Unknown Verified 06/28/24 18:26
metoprolol Allergy Unknown Verified 06/28/24 18:26
Penicillins Allergy Unknown Verified 06/28/24 18:26
�Medication �Instructions �Recorded
nitroglycerin 0.4 mg sublingual 0.4 mg sublingual [id number] PRN 10/09/12
tablet (Nitrostat) chest pain
omeprazole 40 mg capsule,delayed 40 mg PO DAILY 05/12/16
release
aspirin 81 mg tablet,delayed 81 mg PO DAILY 11/16/16
release
metformin 1,000 mg tablet 1,000 mg PO BID@0800,1700 01/15/17
atorvastatin 40 mg tablet 40 mg PO QPM #30 tabs 01/22/17
fluticasone propionate 110 1 puff inhalation R BID 05/27/18
mcg/actuation HFA aerosol inhaler
(Flovent HFA)
hydrochlorothiazide 25 mg tablet 25 mg PO DAILY 05/15/19
isosorbide mononitrate 30 mg 30 mg PO DAILY 05/15/19
tablet,extended release 24 hr
levetiracetam 500 mg tablet 500 mg PO BID 05/15/19
valsartan 320 mg tablet 320 mg PO DAILY 05/15/19
warfarin 3 mg tablet (Jantoven) 6 mg PO .1800 05/15/19
Review of Systems
-
History Source: Patient
Constitutional: Reports No Symptoms
EENT: Reports No Symptoms
Respiratory: Reports No Symptoms
Cardiac: Reports No Symptoms
Abdomen/GI: Reports No Symptoms
: Reports No Symptoms
Musculoskeletal: Reports No Symptoms
Neurological: Reports Weakness
Endocrine: Reports No Symptoms
Hematologic/Lymphatic: Reports No Symptoms
Vital Signs
Temp Pulse Resp BP Pulse Ox
98.3 F 75 16 137/84 97
06/29/24 07:00 06/29/24 10:00 06/29/24 07:30 06/29/24 07:30 06/29/24 07:30
Physical Exam
Exam
General: Well Developed, Well Nourished and No Apparent Distress
HEENT: Normocephalic and Anicteric
Respiratory: Wheezes (slight exp wheeze)
Cardiac: Regular Rhythm
GI: Soft, Non Tender and Non Distended
Musculoskeletal: No Clubbing and No Cyanosis
Neuro: Awake, Alert and AO x 3
Psych: Calm
Results
WBC 8.1 10^3/uL (4.8-10.8) 06/28/24 18:37
Hgb 5.5 g/dL (13.0-18.0) L* 06/28/24 18:37
Hct 19.3 % (39.0-52.0) L* 06/28/24 18:37
MCV 73.9 fL (80.0-94.0) L 06/28/24 18:37
Plt Count 278 10^3/uL (130-400) 06/28/24 18:37
Absolute Neuts (auto) 5.9 10^3/uL (1.4-6.5) 06/28/24 18:37
PT 30.4 Sec (11.4-14.6) H 06/29/24 04:00
INR 2.92 06/29/24 04:00
Sodium 138 mmol/L (135-145) 06/29/24 04:00
Potassium 5.3 mmol/L (3.5-5.1) H 06/29/24 04:00
Chloride 108 mmol/L (98-107) H 06/29/24 04:00
Carbon Dioxide 21 mmol/L (22-30) L 06/29/24 04:00
BUN 43 mg/dl (9-20) H 06/29/24 04:00
Creatinine 1.7 mg/dL (0.7-1.3) H 06/29/24 04:00
Calcium 8.6 mg/dl (8.4-10.2) 06/29/24 04:00
Total Bilirubin 0.5 mg/dl (0.2-1.3) 06/28/24 18:37
AST 21 U/L (17-59) 06/28/24 18:37
ALT 22 U/L (0-50) 06/28/24 18:37
Alkaline Phosphatase 81 U/L (38-126) 06/28/24 18:37
Hepatitis C Antibody Negative (Negative) 06/29/24 04:00
Diagnostic Image Results:
Prior GI Procedures:
12/2019 Malcolm for CANDELARIO colonoscopy - normal
12/2019 Malcolm for CANDELARIO EGD small HH, , chronic gastritis, duodenum bx neg
05/2016 Malcolm colonoscopy - One 5 mm polyp in the proximal descending colon,
removed with a hot snare. Resected and retrieved.
- One 7 mm polyp in the proximal descending colon,
removed with a hot snare. Resected and retrieved.
bx TA
Assessment / Plan
-
Pt is a 78yo with hx cerebral hemorrhage with surgery , afib on Coumadin, CAD, COPD, HTN, NIDDM, valvular disease, gout adrenal neoplasm, prior francine, GERD colon polyps, prior anemia in 2019 with neg work up presents to ER with onset of fatigue,
dyspnea, and exertion with weakness. On admission noted with hbg 5.5 with MCV 73.9 and iron deficiency with prior hbg 12.7 in November. Pt with prior CANDELARIO in past with work up in 2019. At that time EGD with chronic gastritis and colonoscopy normal. He
did have colonoscopy 2016 with TA polyp. ER rectal with brown heme + stool. On ASA but denies other NSAID use.
-heme + Iron deficiency anemia with prior anemia in 2019
-hyperkalemia
-afib on Coumadin prior to admission
other med problems:
-CAD
-CoPD
-HTN
-NIDDM
-valvular disease
-gout
-hx adrenal mass
-francine
-GERD
-colon polyp
-cerebral hemorrhage with surgery
PLAN:
etiology of anemia related to slow GI loss -in setting of chronic coumadin use-- PUD, ectasia, mass/polyp vs other
will need to consider EGD/colon if neg then capsule
ok for clear diet no scopes today as INR 2.92
s/p vitamin K
will review timing with Dr. Camejo-- will place NPO for possible EGD in AM if INR improving and K stable
s/p 3 units transfused repeat hbg at 2 pm today to ensure improved cont to trend hbg
trend K with some elevation on admission -- for Lokelma
cont PPI BID
add IV iron
updated family
-
-
Thank you for consultation and allowing me to participate in the patient's care. Please call the solutions executive cloud sales GI physician during the after hours with any questions or concerns.
[2024-06-29] MEDS: LOKELMA 10 GRAM PO (12:05)
[2024-06-29] MEDS: MEPHYTON 2.5 MG PO (12:05)
[2024-06-29 12:11] LABS: Glucose - Point of Care 100 mg/dl (70-99)
--- NOTE | 2024-06-29 12:34 | CM ---
Chart reviewed. Patient is independent of ADLS, lives with his in a [address], 1 RYAN, 0 DME. Plan is for the patient to return home. CM to follow
[2024-06-29] MEDS: PROTONIX IV 40 MG IV ×2 (14:26→20:46)
[2024-06-29] MEDS: NSS (PRESERVATIVE FREE) 10 ML IV ×2 (14:26→20:46)
[2024-06-29] MEDS: ZYLOPRIM 300 MG PO (14:26)
[2024-06-29] MEDS: CARDIZEM CD 120 MG PO (14:26)
[2024-06-29] MEDS: LEXAPRO 10 MG PO (14:26)
[2024-06-29] MEDS: IMDUR (EXTENDED RELEASE) 30 MG PO (14:26)
[2024-06-29] MEDS: FERRLECIT 110 MG IV (14:27)
[2024-06-29] MEDS: ASPIR LOW (ENTERIC COATED) 81 MG PO (14:27)
[2024-06-29 15:19] LABS: Hematocrit 26.6 % (39.0-52.0); Hemoglobin 8.2 g/dL (13.0-18.0)
[2024-06-29] MEDS: LIPITOR 40 MG PO (17:54)
[2024-06-29 17:55] LABS: Glucose - Point of Care 116 mg/dl (70-99)
[2024-06-29 21:47] LABS: Glucose - Point of Care 125 mg/dl (70-99)
[2024-06-30] VITALS (17 sets, daily range): BP systolic 110–168; BP diastolic 53–92; PULSE 74–76; BMI 27.6
--- NOTE | 2024-06-30 00:38 | PTCARENOTE ---
Rec'd pt at change of shift. Pt AAO*3, AFib with HR in the 60's on TELE monitor, and VSS. Pt denies any pain or discomfort. Pt agreed to NPO status at midnight. Pt resting with call pearce in reach and updated on plan of care, verbalizing
understanding.
See MAR and pt flowchart for full pt assessment and care.
[2024-06-30 04:49] LABS: % Basophils 1.3 % (0-2); % Eosinophils 2.5 % (0-6); % Immature Granulocytes 0.5 % (0-0.5); % Lymphocytes 18.9 % (20.5-51.1); % Monocytes 9.7 % (1.7-9.3); % Neutrophils 67.1 % (42.2-75.2); Absolute Basophils 0.1 10^3/uL (0-0.2); Absolute Eosinophils 0.2 10^3/uL (0-0.7); Absolute Lymphocytes 1.1 10^3/uL (1.2-3.4); Absolute Monocytes 0.6 10^3/uL (0.1-0.6); Hematocrit 26.9 % (39.0-52.0); Hemoglobin 8.2 g/dL (13.0-18.0); Mean Corp Hgb Conc. 30.5 g/dL (33.0-37.0); Mean Corpuscular Hgb 22.8 pg (27.0-31.0); Mean Corpuscular Volume 74.9 fL (80.0-94.0); Mean Platelet Volume 9.6 fL (7.4-10.4); Nucleated Red Blood Cells % 0.3 % (-); Platelet Count 227 10^3/uL (130-400); Red Blood Cell Count 3.59 10^6/uL (4.70-6.10); Red Cell Dist. Width 18.4 % (11.5-14.5)
[2024-06-30 05:12] LABS: Blood Urea Nitrogen 26 mg/dl (9-20); Calcium 8.9 mg/dl (8.4-10.2); Carbon Dioxide 22 mmol/L (22-30); Chloride 107 mmol/L (98-107); Estimated Creatinine Clearance 39 ml/min; Glucose 106 mg/dl (70-99); Potassium 4.2 mmol/L (3.5-5.1); Sodium 138 mmol/L (135-145); eGFR 51.45
[2024-06-30 05:13] LABS: INR 1.69; PT 20.1 Sec (11.4-14.6)
[2024-06-30] MEDS: FLOVENT 110 MCG INHALER 1 PUFF INH ×2 (07:47→19:45)
[2024-06-30] MEDS: ProAIR HFA INHALER 2 PUFF INH ×2 (07:50→19:45)
[2024-06-30] MEDS: NSS (PRESERVATIVE FREE) 10 ML IV ×2 (07:57→19:41)
[2024-06-30] MEDS: PROTONIX IV 40 MG IV ×2 (07:58→19:40)
[2024-06-30 08:00] LABS: Glucose - Point of Care 128 mg/dl (70-99)
--- NOTE | 2024-06-30 08:11 | W.PN.HOSP.TC ---
Addendum entered and electronically signed by Mario Patel DO 06/30/24 12:49:
Yes, acute blood loss anemia is exacerbated by Warfarin.
Original Note:
Today's Communication/Plan
-
EGD today
Assessment / Plan
Assessment / Plan
Gen-AAOx3, NAD
HEENT-NC, AT, anicteric, clear oral mm
Neck-supple
CV-reg, no M, +S1/S2
Lungs-clear B/L
Abd-soft, NT, ND
Ext-no edema
Musculoskeletal-no cyanosis, clubbing
Skin-warm and dry
Neuro-grossly non-focal
Psych-calm, cooperative
Symptomatic acute blood loss anemia - clinically improving, transfused 3u PRBC so far. Heme positive stools in the ER. Patient denies hematochezia or melena. Baseline hemoglobin 12 last year, 5.6 on admission.
Hemoglobin stable, 8.2 this morning. Last BM was June 28, brown stool.
Iron deficiency noted on labs.
GI bleed - likely subacute or chronic. GI consulted. Unclear etiology. Previous c-scope and EGD in 2019 without bleeding source.
Hold Warfarin. EGD for today.
UDAY on CKD 3a - suspect UDAY due to significant anemia. Creatinine coming down. Monitor for now. Hold valsartan.
Permanent AFib - hold warfarin as above. INR down to 1.69 this morning. Received a dose of vitamin K p.o. 2.5 mg on June 29.
Hyperkalemia -resolved.
Essential HTN -stable.
Hyperlipidemia -atorvastatin.
COPD without exac
CAD - stable. Continue aspirin.
DM2 without hyperglycemia -hold metformin. Use low resistance NovoLog scale. Glucose 106 this morning.
Full code
Anticipated Discharge: Within 24 hours
Subjective/Interval History
-
Date of Service: June 30, 2024
Patient seen and examined. No complaints.
Objective Data
-
Labs:
Laboratory Results
06/30/24
04:14
WBC 6.0
Hgb 8.2 L
Hct 26.9 L
Plt Count 227
PT 20.1 H
INR 1.69
Sodium 138
Potassium 4.2
Chloride 107
Carbon Dioxide 22
BUN 26 H
Creatinine 1.4 H
Glucose 106 H
Calcium 8.9
Vital Signs:
Vital Signs
Temp Pulse Resp BP Pulse Ox
97.7 F 86 20 152/85 98
06/30/24 07:56 06/30/24 07:53 06/30/24 07:56 06/30/24 04:01 06/30/24 07:56
I&O
06/29/24 06/30/24 07/01/24
06:59 06:59 06:59
Intake Total 750 / 750 880 / 880
Output Total 400 / 400
Balance 350 / 350 880 / 880
Review of Systems
-
History Source: Patient
All other systems: Reviewed and negative
[2024-06-30 11:16] LABS: Glucose - Point of Care 115 mg/dl (70-99)
--- NOTE | 2024-06-30 11:36 | PTCARENOTE ---
Pt is AOx3, no complaints of pain or discomfort. Pt went for EGD today, will prep for colonoscopy tomorrow. Clear liquid diet. Independent OOB. Call pearce within reach.
[2024-06-30] MEDS: IMDUR (EXTENDED RELEASE) 30 MG PO (11:43)
[2024-06-30] MEDS: LEXAPRO 10 MG PO (11:43)
[2024-06-30] MEDS: CARDIZEM CD 120 MG PO (11:43)
[2024-06-30] MEDS: ZYLOPRIM 300 MG PO (11:43)
[2024-06-30] MEDS: ASPIR LOW (ENTERIC COATED) 81 MG PO (11:43)
--- NOTE | 2024-06-30 12:32 | PN.CDI ---
CDI
- -
CDI:
Physician Documentation Request
Admit Date: 06/28/24 22:44
Dear Doctor Jorge,
Please review the following and provide your response in the progress notes.
Clinical Indicators:
Pt admitted with Acute blood loss anemia, GI bleed, and UDAY on CKD 3a.
06/30 Progress note: 'GI bleed - likely subacute or chronic...Hold Warfarin.'
Please clarify the relationship between these conditions:
Yes, acute blood loss anemia is related to/associated with/exacerbated by Warfarin.
No, acute blood loss anemia is not related to/associated with/exacerbated by Warfarin.
Other
Use of terms such as suspected, likely, concern for, or probable (associated with a specific diagnosis that is being evaluated, monitored, or treated as if it exists) are acceptable and can be coded in the inpatient setting, when documented at the
time of discharge.
Thank you,
Ysabel Briscoe RN, BSN
CDI Specialist
[place] [employer]
Please use your independent medical judgment in providing your response.
[2024-06-30] MEDS: FERRLECIT 110 MG IV (13:52)
[2024-06-30] MEDS: LIPITOR 40 MG PO (17:20)
[2024-06-30] MEDS: NULYTELY SOLUTION 4 LITERS PO (17:20)
[2024-06-30 17:23] LABS: Glucose - Point of Care 155 mg/dl (70-99)
[2024-06-30 22:13] LABS: Glucose - Point of Care 112 mg/dl (70-99)
--- NOTE | 2024-06-30 22:41 | PTCARENOTE ---
Assumed care of the patient @ 1900. AAOx3 A Fib on the monitor VSS Pt continues to drink the CoLyte. Pt instructed on the importance of finishing the entire container. Pt aware NPO status after midnight. Pt is independent in the room BRP. Call pearce
within reach.
[2024-07-01] VITALS (8 sets, daily range): BP systolic 12–166; BP diastolic 74–92; BMI 27.3
[2024-07-01 03:30] LABS: % Basophils 0.8 % (0-2); % Eosinophils 2.6 % (0-6); % Immature Granulocytes 0.8 % (0-0.5); % Lymphocytes 16.7 % (20.5-51.1); % Monocytes 9.6 % (1.7-9.3); % Neutrophils 69.5 % (42.2-75.2); Absolute Basophils 0.1 10^3/uL (0-0.2); Absolute Eosinophils 0.2 10^3/uL (0-0.7); Absolute Immature Granulocytes 0.1 10^3/uL (0-0.05); Absolute Monocytes 0.6 10^3/uL (0.1-0.6); Absolute Neutrophils 4.2 10^3/uL (1.4-6.5); Hematocrit 26.2 % (39.0-52.0); Hemoglobin 8.1 g/dL (13.0-18.0); Mean Corp Hgb Conc. 30.9 g/dL (33.0-37.0); Mean Corpuscular Hgb 23.3 pg (27.0-31.0); Mean Corpuscular Volume 75.5 fL (80.0-94.0); Mean Platelet Volume 9.2 fL (7.4-10.4); Nucleated Red Blood Cells % 0 % (-); Platelet Count 202 10^3/uL (130-400); Red Blood Cell Count 3.47 10^6/uL (4.70-6.10); Red Cell Dist. Width 18.6 % (11.5-14.5); White Blood Cell Count 6.1 10^3/uL (4.8-10.8)
[2024-07-01 03:49] LABS: INR 1.48; PT 18.5 Sec (11.4-14.6)
[2024-07-01 03:56] LABS: Blood Urea Nitrogen 18 mg/dl (9-20); Calcium 8.7 mg/dl (8.4-10.2); Carbon Dioxide 23 mmol/L (22-30); Chloride 106 mmol/L (98-107); Estimated Creatinine Clearance 46 ml/min; Glucose 102 mg/dl (70-99); Potassium 3.9 mmol/L (3.5-5.1); Sodium 138 mmol/L (135-145); eGFR > 60.00
[2024-07-01] MEDS: FLOVENT 110 MCG INHALER 1 PUFF INH (08:05)
--- NOTE | 2024-07-01 08:27 | W.PN.HOSP.TC ---
Addendum entered and electronically signed by Mario Patel DO 07/01/24 16:42:
Okay for discharge home today as per gastroenterology.
Angiectasias noted in duodenum and colon, likely cause of iron deficiency anemia.
Okay to resume warfarin as per GI service.
Permanently stop aspirin.
I left a voicemail for patient's to call me back and did not receive a call back.
Will need INR checked after discharge.
Follow-up with GI in 1 month. Will need outpatient capsule endoscopy.
Follow-up with PCP next week. Check labs next week with PCP as an outpatient.
Original Note:
Today's Communication/Plan
-
Await colonoscopy
Stop aspirin
Assessment / Plan
Assessment / Plan
Gen-AAOx3, NAD
HEENT-NC, AT, anicteric, clear oral mm
Neck-supple
CV-reg, no M, +S1/S2
Lungs-clear B/L
Abd-soft, NT, ND
Ext-no edema
Musculoskeletal-no cyanosis, clubbing
Skin-warm and dry
Neuro-grossly non-focal
Psych-calm, cooperative
Symptomatic acute blood loss anemia -acute blood loss anemia due to GI bleed in the setting of anticoagulation with warfarin, aspirin use. Clinically improving, transfused 3u PRBC so far. Heme positive stools in the ER. Patient denies
hematochezia or melena. Baseline hemoglobin 12 last year, 5.6 on admission.
Hemoglobin stable, 8.1 this morning.
Iron deficiency noted on labs. IV iron ordered.
GI bleed - likely subacute or chronic. GI consulted. Unclear etiology. Previous c-scope and EGD in 2019 without bleeding source.
Hold Warfarin. EGD done yesterday shows normal esophagus, small hiatal hernia, single nonbleeding angiectasia in the duodenum.
Await colonoscopy today.
UDAY on CKD 3a - suspect UDAY due to significant anemia. Creatinine improved, 1.2 today. Monitor for now. Hold valsartan.
Permanent AFib - hold warfarin as above. INR down to 1.48 this morning. Received a dose of vitamin K p.o. 2.5 mg on June 29. Resume warfarin when okay with GI service.
Hyperkalemia -resolved.
Essential HTN -stable.
Hyperlipidemia -atorvastatin.
COPD without exac
CAD - stable. I spoke with his handcrew foreman Dr. Welch. He states that the patient had a distant history of an RCA stent. His recommendation is to resume warfarin alone on discharge and discontinue further antiplatelet therapy. Therefore we
will stop aspirin.
DM2 without hyperglycemia -hold metformin. Use low resistance NovoLog scale. Glucose 102 this morning.
Full code
Anticipated Discharge: Within 24 hours
Subjective/Interval History
-
Date of Service: July 01, 2024
Patient seen and examined. No complaints.
Objective Data
-
Labs:
Laboratory Results
07/01/24
03:00
WBC 6.1
Hgb 8.1 L
Hct 26.2 L
Plt Count 202
PT 18.5 H
INR 1.48
Sodium 138
Potassium 3.9
Chloride 106
Carbon Dioxide 23
BUN 18
Creatinine 1.2
Glucose 102 H
Calcium 8.7
Vital Signs:
Vital Signs
Temp Pulse Resp BP Pulse Ox
98.7 F 90 14 160/81 96
07/01/24 07:51 07/01/24 08:07 07/01/24 08:07 07/01/24 02:53 07/01/24 07:51
I&O
06/30/24 07/01/24 07/02/24
06:59 06:59 06:59
Intake Total 880 / 880 500 / 500
Balance 880 / 880 500 / 500
Review of Systems
-
History Source: Patient
All other systems: Reviewed and negative
[2024-07-01] MEDS: PROTONIX IV 40 MG IV (08:34)
[2024-07-01] MEDS: NSS (PRESERVATIVE FREE) 10 ML IV (08:34)
[2024-07-01 08:51] LABS: Glucose - Point of Care 116 mg/dl (70-99)
[2024-07-01 10:22] LABS: Glucose - Point of Care 111 mg/dl (70-99)
--- NOTE | 2024-07-01 11:00 | PTCARENOTE ---
Received pt from PACU. VSS. Discussed post colonoscopy orders. Pt verbalized understanding.
[2024-07-01 11:48] LABS: Glucose - Point of Care 109 mg/dl (70-99)
[2024-07-01] MEDS: IMDUR (EXTENDED RELEASE) 30 MG PO (11:58)
[2024-07-01] MEDS: CARDIZEM CD 120 MG PO (11:59)
[2024-07-01] MEDS: LEXAPRO 10 MG PO (11:59)
[2024-07-01] MEDS: ZYLOPRIM 300 MG PO (11:59)
[2024-07-01] MEDS: ASPIR LOW (ENTERIC COATED) PO (12:32)
--- NOTE | 2024-07-01 13:26 | W.DS.TRANS ---
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
-
Discharge Instructions:
Sleep Apnea Risk High
Discharge Diagnosis/Procedures Symptomatic anemia, GI bleed, acute kidney
injury
Diet Low Cholesterol,Low Fat,Diabetic, Carb
Controlled
Activity As tolerated
Driving Restrictions As prior to admission
Bathing Restrictions None
Blood Work CBC and BMP next week with your primary care
doctor
Instructions:
Stand-Alone Forms:
Changes to Home Medications: No
Discharge Medications:
DC Medications w/original date entered in [facility]
nitroglycerin 0.4 mg sublingual tablet (Nitrostat) 0.4 mg sublingual [id number] PRN chest pain 10/09/12
omeprazole 40 mg capsule,delayed release 40 mg PO DAILY 05/12/16
metformin 1,000 mg tablet 1,000 mg PO BID@0800,1700 01/15/17
atorvastatin 40 mg tablet 40 mg PO QPM #30 tabs 01/22/17
fluticasone propionate 110 mcg/actuation HFA aerosol inhaler (Flovent HFA) 1 puff inhalation R BID 05/27/18
hydrochlorothiazide 25 mg tablet 25 mg PO DAILY 05/15/19
isosorbide mononitrate 30 mg tablet,extended release 24 hr 30 mg PO DAILY 05/15/19
valsartan 320 mg tablet 320 mg PO DAILY 05/15/19
warfarin 3 mg tablet (Jantoven) 6 mg PO .1800 05/15/19
albuterol sulfate 90 mcg/actuation aerosol inhaler 2 puff inhalation R Q4HPRN PRN wheeze or sob #0 grams 07/01/24
diltiazem HCl 120 mg capsule,extended release 24 hr 120 mg PO DAILY #0 caps 07/01/24
escitalopram oxalate 10 mg tablet 10 mg PO DAILY #0 tabs 07/01/24
ferrous sulfate 325 mg (65 mg iron) tablet 325 mg PO Q OTHER DAY #20 tabs 07/01/24
Home Medication Changes
Pending Results: No
[2024-07-01] MEDS: FERRLECIT 110 MG IV (13:52)
--- NOTE | 2024-07-01 15:19 | PTCARENOTE ---
Discharge instructions discussed w/ pt. Pt's states that pt takes iron daily. Pt instructed to discuss w/ GI doctor.
== END 2024-07-01 16:00 | disposition home or self-care (01) | DRG 378 ==
LOC: IVU 22:44
PROVIDERS: Emergency Medicine; Internal Medicine Gastroenterology; ADMITTING PHYSICIAN Internal Medicine; ATTENDING PHYSICIAN Hospitalist; EMERGENCY PHYSICIAN Emergency Medicine; OTHER PHYSICIAN Internal Medicine Cardiovascular Disease
PROC: 30233N1 Transfusion of Nonautologous Red Blood Cells into Peripheral Vein, Percutaneous Approach (ICD-10-PCS; 2024-06-28)
PROC: 0DJ08ZZ Inspection of Upper Intestinal Tract, Via Natural or Artificial Opening Endoscopic (ICD-10-PCS; 2024-06-30)
PROC: 0DJD8ZZ Inspection of Lower Intestinal Tract, Via Natural or Artificial Opening Endoscopic (ICD-10-PCS; 2024-07-01)
DX: K31.811 Angiodysplasia of stomach and duodenum with bleeding (principal); D68.32 Hemorrhagic disorder due to extrinsic circulating anticoagulants; N17.9 Acute kidney failure, unspecified; I42.9 Cardiomyopathy, unspecified; I48.21 Permanent atrial fibrillation; D50.0 Iron deficiency anemia secondary to blood loss (chronic); K55.21 Angiodysplasia of colon with hemorrhage; K44.9 Diaphragmatic hernia without obstruction or gangrene; K64.8 Other hemorrhoids; J44.9 Chronic obstructive pulmonary disease, unspecified; I25.10 Atherosclerotic heart disease of native coronary artery without angina pectoris; I12.9 Hypertensive chronic kidney disease with stage 1 through stage 4 chronic kidney disease, or unspecified chronic kidney disease; K21.9 Gastro-esophageal reflux disease without esophagitis; E11.22 Type 2 diabetes mellitus with diabetic chronic kidney disease; Z79.84 Long term (current) use of oral hypoglycemic drugs; F17.200 Nicotine dependence, unspecified, uncomplicated; Z88.0 Allergy status to penicillin; Z88.8 Allergy status to other drugs, medicaments and biological substances; Z88.1 Allergy status to other antibiotic agents; Z79.82 Long term (current) use of aspirin; E78.00 Pure hypercholesterolemia, unspecified; Z79.01 Long term (current) use of anticoagulants; M10.9 Gout, unspecified; Z86.0100 Personal history of colon polyps, unspecified; Z85.858 Personal history of malignant neoplasm of other endocrine glands; K29.50 Unspecified chronic gastritis without bleeding; K58.9 Irritable bowel syndrome, unspecified; K57.30 Diverticulosis of large intestine without perforation or abscess without bleeding; E73.9 Lactose intolerance, unspecified; Z90.49 Acquired absence of other specified parts of digestive tract; Z79.899 Other long term (current) drug therapy; Z87.11 Personal history of peptic ulcer disease; M19.90 Unspecified osteoarthritis, unspecified site; N18.31 Chronic kidney disease, stage 3a
CPT/HCPCS: 36430; 80048; 80053; 82728; 82746; 82962; 83540; 83550; 85014; 85018; 85025; 85610; 86803; 86850; 86900; 86901; 86920; 93005; 94640; 99291; 99406; J2916; P9016

== ENCOUNTER → 2024-07-09 14:45 | Outpatient (REF) | payer MEDICARE, SELFPAY ==
[2024-07-09 17:54] LABS: INR 2.31; PT 25.5 Sec (11.4-14.6)
[2024-07-09 17:55] LABS: APTT 55.6 Sec (23.4-35.0)
[2024-07-09 18:12] LABS: Albumin 3.8 g/dl (3.5-5.0); Blood Urea Nitrogen 28 mg/dl (9-20); Calcium 9.1 mg/dl (8.4-10.2); Carbon Dioxide 23 mmol/L (22-30); Chloride 107 mmol/L (98-107); Glucose 76 mg/dl (70-99); Iron 31 ug/dl (49-181); Phosphorus 2.9 mg/dl (2.5-4.5); Potassium 4.6 mmol/L (3.5-5.1); Sodium 141 mmol/L (135-145); Uric Acid 5.8 mg/dl (3.5-8.5); eGFR 51.45
[2024-07-09 18:14] LABS: % Immature Granulocytes 0.6 % (0-0.5); % Lymphocytes 15.3 % (20.5-51.1); % Monocytes 7.8 % (1.7-9.3); % Neutrophils 73.3 % (42.2-75.2); Absolute Basophils 0.1 10^3/uL (0-0.2); Absolute Eosinophils 0.2 10^3/uL (0-0.7); Absolute Immature Granulocytes 0.1 10^3/uL (0-0.05); Absolute Lymphocytes 1.3 10^3/uL (1.2-3.4); Absolute Monocytes 0.7 10^3/uL (0.1-0.6); Absolute Neutrophils 6.4 10^3/uL (1.4-6.5); Hematocrit 29.3 % (39.0-52.0); Hemoglobin 8.7 g/dL (13.0-18.0); Mean Corp Hgb Conc. 29.7 g/dL (33.0-37.0); Mean Corpuscular Hgb 23.6 pg (27.0-31.0); Mean Corpuscular Volume 79.4 fL (80.0-94.0); Mean Platelet Volume 10.1 fL (7.4-10.4); Nucleated Red Blood Cells % 0 % (-); Platelet Count 296 10^3/uL (130-400); Red Blood Cell Count 3.69 10^6/uL (4.70-6.10); Red Cell Dist. Width 21.7 % (11.5-14.5); White Blood Cell Count 8.7 10^3/uL (4.8-10.8)
[2024-07-09 18:20] LABS: Percent Saturation 8 % (20-50); Total Iron Binding Capacity 362 ug/dl (261-462)
[2024-07-09 18:44] LABS: Ferritin 79.8 ng/ml (17.9-464.0)
== END ==
LOC: HWRCS 14:45
PROVIDERS: ATTENDING PHYSICIAN Internal Medicine Cardiovascular Disease; FAMILY PHYSICIAN Nurse Practitioner Family; OTHER PHYSICIAN Internal Medicine Gastroenterology
DX: I25.10 Atherosclerotic heart disease of native coronary artery without angina pectoris (principal); R06.02 Shortness of breath; M25.571 Pain in right ankle and joints of right foot; M1A.40X0 Other secondary chronic gout, unspecified site, without tophus (tophi); Z79.01 Long term (current) use of anticoagulants; I48.21 Permanent atrial fibrillation; D50.9 Iron deficiency anemia, unspecified
CPT/HCPCS: 36415; 80069; 82728; 83540; 83550; 84550; 85025; 85610; 85730; 93306

== ENCOUNTER → 2024-07-13 13:04 | Outpatient (REF) | payer MEDICARE, SELFPAY | LOC: RAD 13:04 | PROVIDERS: ATTENDING PHYSICIAN Family Medicine; PRIMARYCARE PHYSICIAN Family Medicine | DX: M79.89 Other specified soft tissue disorders (principal); I10 Essential (primary) hypertension; M79.604 Pain in right leg | CPT/HCPCS: 93971 ==

== ENCOUNTER → 2024-08-13 10:13 | Outpatient (REF) | payer MEDICARE, SELFPAY ==
[2024-08-13 12:52] LABS: INR 2.61
[2024-08-13 12:54] LABS: % Eosinophils 2.2 % (0-6); % Immature Granulocytes 1.4 % (0-0.5); % Lymphocytes 18.8 % (20.5-51.1); % Monocytes 9.8 % (1.7-9.3); % Neutrophils 66.8 % (42.2-75.2); Absolute Basophils 0.1 10^3/uL (0-0.2); Absolute Eosinophils 0.2 10^3/uL (0-0.7); Absolute Immature Granulocytes 0.1 10^3/uL (0-0.05); Absolute Lymphocytes 1.4 10^3/uL (1.2-3.4); Absolute Monocytes 0.7 10^3/uL (0.1-0.6); Absolute Neutrophils 4.9 10^3/uL (1.4-6.5); Hematocrit 37.5 % (39.0-52.0); Hemoglobin 11.4 g/dL (13.0-18.0); Mean Corp Hgb Conc. 30.4 g/dL (33.0-37.0); Mean Corpuscular Hgb 24.3 pg (27.0-31.0); Mean Platelet Volume 9.1 fL (7.4-10.4); Nucleated Red Blood Cells % 0 % (-); Platelet Count 273 10^3/uL (130-400); Red Blood Cell Count 4.69 10^6/uL (4.70-6.10); White Blood Cell Count 7.3 10^3/uL (4.8-10.8)
[2024-08-13 13:27] LABS: Iron 55 ug/dl (49-181)
[2024-08-13 13:37] LABS: Percent Saturation 15 % (20-50); Total Iron Binding Capacity 364 ug/dl (261-462)
[2024-08-13 13:39] LABS: Ferritin 34.7 ng/ml (17.9-464.0)
== END ==
LOC: HWLAB 10:13
PROVIDERS: ATTENDING PHYSICIAN Internal Medicine Cardiovascular Disease; FAMILY PHYSICIAN Family Medicine; REFERRING PHYSICIAN Internal Medicine Gastroenterology
DX: D50.9 Iron deficiency anemia, unspecified (principal); I48.21 Permanent atrial fibrillation
CPT/HCPCS: 36415; 82728; 83540; 83550; 85025; 85610

== ENCOUNTER → 2024-09-01 11:27 | Outpatient (REF) | payer MEDICARE, SELFPAY ==
[2024-09-01 13:21] LABS: INR 2.61; PT 28.3 Sec (11.4-14.6)
== END ==
LOC: HWLAB 11:27
PROVIDERS: ATTENDING PHYSICIAN Internal Medicine Cardiovascular Disease; FAMILY PHYSICIAN Family Medicine
DX: I48.21 Permanent atrial fibrillation (principal)
CPT/HCPCS: 36415; 85610

== ENCOUNTER → 2024-09-30 13:08 | Outpatient (REF) | payer MEDICARE, SELFPAY ==
[2024-09-30 16:30] LABS: INR 2.14; PT 24.4 Sec (11.4-14.6)
== END ==
LOC: HWLAB 13:08
PROVIDERS: ATTENDING PHYSICIAN Internal Medicine Cardiovascular Disease; FAMILY PHYSICIAN Family Medicine
DX: I48.21 Permanent atrial fibrillation (principal)
CPT/HCPCS: 36415; 85610

== ENCOUNTER → 2024-11-01 12:52 | Outpatient (REF) | payer MEDICARE, SELFPAY ==
[2024-11-01 15:59] LABS: INR 2.04; PT 23.2 Sec (11.4-14.6)
== END ==
LOC: HWLAB 12:52
PROVIDERS: ATTENDING PHYSICIAN Internal Medicine Cardiovascular Disease; FAMILY PHYSICIAN Family Medicine
DX: I48.21 Permanent atrial fibrillation (principal)
CPT/HCPCS: 36415; 85610

== ENCOUNTER → 2024-11-16 10:08 | Outpatient (REF) | payer MEDICARE, SELFPAY ==
[2024-11-16 12:12] LABS: % Basophils 0.9 % (0-2); % Eosinophils 1.9 % (0-6); % Immature Granulocytes 0.5 % (0-0.5); % Lymphocytes 20.8 % (20.5-51.1); % Monocytes 9.7 % (1.7-9.3); % Neutrophils 66.2 % (42.2-75.2); Absolute Basophils 0.1 10^3/uL (0-0.2); Absolute Eosinophils 0.2 10^3/uL (0-0.7); Absolute Lymphocytes 1.8 10^3/uL (1.2-3.4); Absolute Monocytes 0.8 10^3/uL (0.1-0.6); Absolute Neutrophils 5.6 10^3/uL (1.4-6.5); Hematocrit 38.3 % (39.0-52.0); Hemoglobin 12.1 g/dL (13.0-18.0); Mean Corp Hgb Conc. 31.6 g/dL (33.0-37.0); Mean Corpuscular Hgb 27.1 pg (27.0-31.0); Mean Corpuscular Volume 85.9 fL (80.0-94.0); Mean Platelet Volume 9.5 fL (7.4-10.4); Nucleated Red Blood Cells % 0 % (-); Platelet Count 212 10^3/uL (130-400); Red Blood Cell Count 4.46 10^6/uL (4.70-6.10); Red Cell Dist. Width 16.4 % (11.5-14.5); White Blood Cell Count 8.5 10^3/uL (4.8-10.8)
[2024-11-16 12:24] LABS: INR 1.86; PT 21.6 Sec (11.4-14.6)
[2024-11-16 13:31] LABS: Total Iron Binding Capacity 419 ug/dl (261-462)
[2024-11-16 13:46] LABS: Ferritin 14.5 ng/ml (17.9-464.0)
[2024-11-16 13:51] LABS: Iron 67 ug/dl (49-181); Percent Saturation 15 % (20-50)
== END ==
LOC: HWLAB 10:08
PROVIDERS: ATTENDING PHYSICIAN Internal Medicine Cardiovascular Disease; FAMILY PHYSICIAN Family Medicine
DX: D50.8 Other iron deficiency anemias (principal); I48.21 Permanent atrial fibrillation
CPT/HCPCS: 36415; 82728; 83540; 83550; 85025; 85610

== ENCOUNTER → 2024-11-30 11:24 | Outpatient (REF) | payer MEDICARE, SELFPAY ==
[2024-11-30 15:17] LABS: INR 2.21; PT 24.6 Sec (11.4-14.6)
== END ==
LOC: HWLAB 11:24
PROVIDERS: ATTENDING PHYSICIAN Internal Medicine Cardiovascular Disease; FAMILY PHYSICIAN Family Medicine
DX: I48.21 Permanent atrial fibrillation (principal)
CPT/HCPCS: 36415; 85610

== ENCOUNTER → 2024-12-27 11:08 | Outpatient (REF) | payer MEDICARE, SELFPAY ==
[2024-12-27 15:59] LABS: Hematocrit 36.0 % (39.0-52.0); Hemoglobin 11.5 g/dL (13.0-18.0); Mean Corp Hgb Conc. 31.9 g/dL (33.0-37.0); Mean Corpuscular Volume 86.3 fL (80.0-94.0); Nucleated Red Blood Cells % 0 % (-); Platelet Count 193 10^3/uL (130-400); Red Cell Dist. Width 15.8 % (11.5-14.5)
[2024-12-27 16:08] LABS: INR 2.67; PT 28.4 Sec (11.4-14.6)
[2024-12-27 16:14] LABS: ALT (SGPT) 13 U/L (0-50); AST (SGOT) 17 U/L (17-59); Albumin 4.3 g/dl (3.5-5.0); Alkaline Phosphatase 72 U/L (38-126); Blood Urea Nitrogen 24 mg/dl (9-20); Calcium 9.1 mg/dl (8.4-10.2); Carbon Dioxide 29 mmol/L (22-30); Chloride 105 mmol/L (98-107); Glucose 112 mg/dl (70-99); HDL Cholesterol 48 mg/dl; LDL Cholesterol, Calculated 50 mg/dl; Potassium 5.1 mmol/L (3.5-5.1); Sodium 141 mmol/L (135-145); Total Protein 6.6 g/dl (6.3-8.2); Very Low Density Lipoprotein 13 mg/dl (0-30); eGFR > 60.00
[2024-12-27 16:25] LABS: Microalb - Urine Creatinine 114.400 mg/dl
[2024-12-27 21:16] LABS: Microalbumin, Random Urine > 57.0 mg/dl (0.6-1.7)
[2024-12-28 08:01] LABS: Glycohemoglobin (HgbA1c) 6.2 % (4.0-5.6)
== END ==
LOC: HWLAB 11:08
PROVIDERS: ATTENDING PHYSICIAN Internal Medicine Cardiovascular Disease; FAMILY PHYSICIAN Family Medicine
DX: I48.21 Permanent atrial fibrillation (principal); I10 Essential (primary) hypertension; J44.9 Chronic obstructive pulmonary disease, unspecified; I25.10 Atherosclerotic heart disease of native coronary artery without angina pectoris; E11.8 Type 2 diabetes mellitus with unspecified complications; E78.5 Hyperlipidemia, unspecified; D50.9 Iron deficiency anemia, unspecified
CPT/HCPCS: 36415; 80053; 80061; 82043; 82570; 83036; 85025; 85610

== ENCOUNTER → 2025-02-07 11:40 | Outpatient (REF) | payer MEDICARE, SELFPAY ==
[2025-02-07 16:45] LABS: INR 2.04; PT 23.2 Sec (11.4-14.6)
== END ==
LOC: HWLAB 11:40
PROVIDERS: ATTENDING PHYSICIAN Internal Medicine Cardiovascular Disease; FAMILY PHYSICIAN Family Medicine
DX: I48.21 Permanent atrial fibrillation (principal)
CPT/HCPCS: 36415; 85610

== ENCOUNTER → 2025-03-03 10:32 | Outpatient (REF) | payer MEDICARE, SELFPAY ==
[2025-03-03 12:55] LABS: INR 2.08; PT 23.9 Sec (11.4-14.6)
== END ==
LOC: HWLAB 10:32
PROVIDERS: ATTENDING PHYSICIAN Internal Medicine Cardiovascular Disease; FAMILY PHYSICIAN Family Medicine
DX: I48.21 Permanent atrial fibrillation (principal)
CPT/HCPCS: 36415; 85610

== ENCOUNTER → 2025-05-10 12:43 | Outpatient (REF) | payer MEDICARE, SELFPAY ==
[2025-05-10 13:40] LABS: INR 2.28; PT 25.3 Sec (11.4-14.6)
== END ==
LOC: REG 12:43
PROVIDERS: ATTENDING PHYSICIAN Internal Medicine Cardiovascular Disease; FAMILY PHYSICIAN Family Medicine
DX: I48.21 Permanent atrial fibrillation (principal)
CPT/HCPCS: 36415; 85610